=== PATIENT | female | born 1990 | race Hispanic/Latino ===

== ENCOUNTER 2017-09-04 05:33 | Day surgery (SDC) | payer MEDICAID ==
[2017-09-03 16:21] VITALS: BP 142/78
[2017-09-03 16:23] LABS: BASOPHILS % (AUTO) 0.6 % (0.0-5.0); EOSINOPHILS % (AUTO) 3.2 % (0.0-8.0); HEMATOCRIT 36.5 % (36-48); LYMPHOCYTES % (AUTO) 35.5 % (21.0-51.0); MEAN CORPUSCULAR HEMOGLOBIN 28.6 pg (27.0-33.0); MEAN CORPUSCULAR HGB CONC 33.4 g/dL (32.0-36.0); MEAN CORPUSCULAR VOLUME 85.7 fL (79-99); MONOCYTES % (AUTO) 8.2 % (3.0-13.0); NEUTROPHILS % (AUTO) 52.5 % (40.0-77.0); PLATELET COUNT (AUTO) 260 K/uL (130-400); RED BLOOD CELL COUNT(AUTO) 4.26 MIL/uL (4.00-5.50); RED CELL DISTRIBUTION WIDTH 14.3 % (11.0-15.5); WHITE BLOOD COUNT (AUTO) 8.5 K/uL (4.8-10.8)
[2017-09-04] VITALS (18 sets, daily range): BP systolic 119–148; BP diastolic 38–87
[~2017-09-04] VITALS: Ht 170.2 cm; Wt 115.9 kg
[2017-09-04] MEDS ORDERED: CEFAZOLIN 3GM /D5W 100ML 100 ML IV SCH (06:00)
[2017-09-04] MEDS ORDERED: LACTATED RINGERS 1000ML 1,000 ML IV SCH (06:00)
[2017-09-04] MEDS ORDERED: LIDOCAINE PF 2% 5ML ABBOJECT ONE (08:22)
[2017-09-04] MEDS ORDERED: PHENYLEPHRINE HCL 10 MG/ML 1ML VIAL IV ONE (08:22)
[2017-09-04] MEDS ORDERED: DEXAMETHASONE SOD PHOSPHATE 10MG/ML 1ML VIAL ONE (08:22)
[2017-09-04] MEDS ORDERED: ONDANSETRON HCL MDV 20ML 2 MG/ML VIAL ONE (08:22)
[2017-09-04] MEDS ORDERED: GLYCOPYRROLATE 0.2 MG/ML 5 ML VIAL ONE (08:22)
[2017-09-04] MEDS ORDERED: LIDOCAINE HCL MPF 1% 5ML VIAL ONE (08:22)
[2017-09-04] MEDS ORDERED: NEOSTIGMINE METHYLSULFATE 1MG/ML IV ONE (08:22)
[2017-09-04] MEDS ORDERED: LIDOCAINE 2%-EPI 1:200,000 20 ML VIAL IJ ONE (08:23)
[2017-09-04] MEDS ORDERED: LIDOCAINE HCL 2% JELLY 5 ML ONE (08:23)
[2017-09-04] MEDS ORDERED: FENTANYL CITRATE PF 50 MCG/1 ML 2ML VIAL ONE (08:23)
[2017-09-04] MEDS ORDERED: LIDOCAINE HCL 4% LTA SOL 4 ML VIAL ONE (08:23)
[2017-09-04] MEDS ORDERED: MIDAZOLAM HCL 1 MG/ML 2ML VIAL ONE (08:23)
[2017-09-04] MEDS ORDERED: SODIUM CHLORIDE 0.9% 10 ML VIAL ONE (08:23)
[2017-09-04] MEDS ORDERED: PROPOFOL 10 MG/ML 20ML VIAL IV ONE (08:23)
[2017-09-04] MEDS ORDERED: ROCURONIUM BROMIDE 10MG/1ML 5ML VL ONE (08:23)
== END 2017-09-04 11:58 | disposition home or self-care (01) ==
LOC: DAH 05:33
PROVIDERS: ATTEND Obstetrics & Gynecology
DX: Z30.2 Encounter for sterilization (principal); Z68.41 Body mass index [BMI] 40.0-44.9, adult; E66.01 Morbid (severe) obesity due to excess calories
CPT/HCPCS: 36415; 58661; 84703; 85025; 86850; 86900; 86901; A4215; A4351; A4452; A4510; A4600; A4606; A4930; C1769 ×2; J1100; J2001; J2250; J2370; J2704; J2710; J3010; J3490 ×4; J7120